=== PATIENT | male | born 1995 | race Hispanic/Latino ===

== ENCOUNTER 2017-11-03 21:02 | Emergency (ER) | payer MEDICAID | END 2017-11-03 22:43 | disposition home or self-care (01) | LOC: EDH 21:02 | DX: J06.9 Acute upper respiratory infection, unspecified (principal); Z72.0 Tobacco use | CPT/HCPCS: 99281 ==

== ENCOUNTER 2023-04-21 10:26 | Emergency (ER) | payer MEDICAID ==
[~2023-04-21] VITALS: Ht 162.6 cm; Wt 63.5 kg
[2023-04-21 12:35] LABS: APPEARANCE,URINE CLOUDY (CLEAR); BILIRUBIN,URINE NEGATIVE (NEGATIVE); COLOR,URINE LIGHT-YELLOW (YELLOW); GLUCOSE, URINE (UA) NEGATIVE (NEGATIVE); KETONES,URINE NEGATIVE (NEGATIVE); LEUKOCYTE ESTERASE ,URINE NEGATIVE Leu/uL (NEGATIVE); NITRATE,URINE NEGATIVE (NEGATIVE); OCCULT BLOOD,URINE NEGATIVE (NEGATIVE); PROTEIN,URINE NEGATIVE (NEGATIVE); UROBILINOGEN,URINE 0.2 mg/dL (0.2-1.0)
[2023-04-21 12:44] LABS: ADD UA MICROSCOPIC NO
[2023-04-21] MEDS ORDERED: AZITHROMYCIN 250 MG TABLET PO ONE (13:30)
[2023-04-21] MEDS ORDERED: CEFTRIAXONE 500MG VIAL IM SCH (13:30)
[2023-04-21 14:57] VITALS: BP 133/68; PULSE 78; RESP 18; O2SAT 98
[2023-04-21 15:31] LABS: RAPID PLASMA REAGIN NONREACTIVE (NONREACTIVE)
== END 2023-04-21 14:59 | disposition home or self-care (01) ==
LOC: EDH 10:26
DX: R36.9 Urethral discharge, unspecified (principal); Z20.2 Contact with and (suspected) exposure to infections with a predominantly sexual mode of transmission
CPT/HCPCS: 99283; 86592; 87797; 86701; 87390; 87486; 81003; 36415; 96372; J0696

== ENCOUNTER 2023-12-24 19:59 | Emergency (ER) | payer MEDICAID, OTHER ==
[~2023-12-24] VITALS: Ht 162.6 cm; Wt 63.5 kg
[2023-12-24 21:45] LABS: ADD UA MICROSCOPIC YES; APPEARANCE,URINE CLEAR (CLEAR); BILIRUBIN,URINE NEGATIVE (NEGATIVE); COLOR,URINE LIGHT-YELLOW (YELLOW); GLUCOSE, URINE (UA) NEGATIVE (NEGATIVE); KETONES,URINE NEGATIVE (NEGATIVE); LEUKOCYTE ESTERASE ,URINE NEGATIVE Leu/uL (NEGATIVE); NITRATE,URINE NEGATIVE (NEGATIVE); OCCULT BLOOD,URINE NEGATIVE (NEGATIVE); PROTEIN,URINE NEGATIVE (NEGATIVE); UROBILINOGEN,URINE 0.2 mg/dL (0.2-1.0)
[2023-12-24 21:46] LABS: MUCUS,URINE RARE LPF (None Seen); RBC,URINE 0-1 /HPF (0-1); WBC,URINE 0-1 /HPF (0-1)
[2023-12-24 22:02] LABS: RAPID GROUP A STREP negative (NEGATIVE)
[2023-12-24 22:08] LABS: SARS-CoV-2, RNA, NAAT NEGATIVE SARS CoV-2 (NEGATIVE)
[2023-12-24 22:12] LABS: INFLUENZA TYPE A Negative For Type A (NEGATIVE); INFLUENZA TYPE B Negative For Type B (NEGATIVE)
[2023-12-24] MEDS ORDERED: VALA10002 PO (23:10)
[2023-12-24 23:25] VITALS: BP 118/78; PULSE 62; RESP 18; O2SAT 99
== END 2023-12-24 23:31 | disposition home or self-care (01) ==
LOC: EDH 19:59
DX: B00.9 Herpesviral infection, unspecified (principal); B00.89 Other herpesviral infection
CPT/HCPCS: 81001; 87635; 87804; 87880